=== PATIENT | male | born 1955 | race Caucasian/White ===

== ENCOUNTER 2016-11-25 09:22 | Inpatient (IN) | payer BC, OTHER ==
[2016-11-01 10:33] VITALS: BMI 32.0
--- NOTE | 2016-11-01 11:11 | PAT Medication Instructions ---
Service Date Nov 01, 2016. Current Home Medication List Acetaminophen (Tylenol Arthritis Ext Rel), 1,300 MG PO TID PRN for Pain Ascorbic Acid (Vitamin C), 1,000 MG PO QAM Aspirin Enteric Coated (Ecotrin Or Generic), 81 MG PO QAM Atorvastatin (Lipitor), 40 MG PO HS Cholecalciferol (Vitamin D3), 1 TAB PO QAM Clopidogrel (Plavix), 75 MG PO HS Coenzyme Q10 (Ubidecarenone) (Co Q10), 200 MG PO QAM Finasteride (Proscar), 5 MG PO QAM Irbesartan (Avapro), 150 MG PO QAM Loratadine (Claritin), 10 MG PO QAM Metoprolol Tartrate (Lopressor) (Lopressor), 150 MG PO QAM Nitroglycerin (Nitrostat), 0.4 MG UT PRN Pantoprazole (Protonix), 40 MG PO QAM Red Yeast Rice Extract (Red Yeast Rice), 1,200 MG PO AM/HS Tamsulosin Hcl (Flomax), 0.4 MG PO QPM Triamcinolone Acet (Triamcinolone Acetonide), 1 APPLN TOP QAM PRN for RN Turmeric (Curcuma Longa) (Turmeric Curcumin), 500 MG PO QAM Zinc (Zinc), 50 MG PO QAM Medication Instructions For Your Scheduled Surgery - Continue as directed: Nitroglycerin (Nitrostat), 0.4 MG UT PRN - Instructions to be given by prescribing physician and surgeon: Clopidogrel (Plavix), 75 MG PO HS - Hold the following medications 2 weeks prior to surgery: Turmeric (Curcuma Longa) (Turmeric Curcumin), 500 MG PO QAM Red Yeast Rice Extract (Red Yeast Rice), 1,200 MG PO AM/HS Coenzyme Q10 (Ubidecarenone) (Co Q10), 200 MG PO QAM - Hold the following medications 24 hours prior to surgery: Triamcinolone Acet (Triamcinolone Acetonide), 1 APPLN TOP QAM PRN for RN - Hold the following medications the morning of surgery: Zinc (Zinc), 50 MG PO QAM Ascorbic Acid (Vitamin C), 1,000 MG PO QAM Irbesartan (Avapro), 150 MG PO QAM Cholecalciferol (Vitamin D3), 1 TAB PO QAM Loratadine (Claritin), 10 MG PO QAM - Take the following medications the morning of surgery with a sip of water OTHERWISE NOTHING TO EAT OR DRINK AFTER MIDNIGHT: Acetaminophen (Tylenol Arthritis Ext Rel), 1,300 MG PO TID PRN for Pain (may take if needed up to 4 hours prior to surgery) Aspirin Enteric Coated (Ecotrin Or Generic), 81 MG PO QAM Finasteride (Proscar), 5 MG PO QAM Pantoprazole (Protonix), 40 MG PO QAM Metoprolol Tartrate (Lopressor) (Lopressor), 150 MG PO QAM - Take the following medications as scheduled the night before surgery: Acetaminophen (Tylenol Arthritis Ext Rel), 1,300 MG PO TID PRN for Pain Tamsulosin Hcl (Flomax), 0.4 MG PO QPM Atorvastatin (Lipitor), 40 MG PO HS If you have any questions please call us at [phone] (Tuyet Villanueva PA-C ) or [phone] or [phone]
--- NOTE | 2016-11-01 11:39 | DIAGNOSTIC IMAGING REPORT ---
CHEST PREADMISSION(PA/LAT) CLINICAL HISTORY: Preoperative evaluation. COMPARISON STUDY: Chest radiograph December 07, 2006. FINDINGS: Lung volumes are normal. Lungs are clear. There is no pneumothorax or pleural effusion. Cardiac size is normal. Mediastinal contours are normal. The appearance of the chest is unchanged. IMPRESSION: No acute cardiopulmonary findings. Electronically signed by: Collin Chang M.D. 11/01/2016 11:37 AM Dictated Date/Time: 11/01/2016 11:35 AM
[2016-11-01 12:11] LABS: BASO % 0.2 %; BASO ABS # 0.01 K/uL (0-0.2); COMPLETE YES; EOS % 2.1 %; HEMATOCRIT 39.2 % (42-52); IG% 0.5 %; LYMPH % 35.2 %; LYMPH ABS # 1.54 K/uL (1.2-3.4); MEAN CORPUSCULAR HEMOGLOBIN 32.4 pg (25-34); MEAN CORPUSCULAR HGB CONC 34.4 g/dl (32-36); MEAN PLATELET VOLUME 9.9 fL (7.4-10.4); MONO % 13.5 %; NEUT % 48.5 %; PLATELET COUNT 146 K/uL (130-400); RED BLOOD COUNT 4.17 M/uL (4.7-6.1); WHITE BLOOD COUNT 4.38 K/uL (4.8-10.8)
[2016-11-01 12:14] LABS: URINE APPEARANCE CLEAR (CLEAR); URINE BILIRUBIN NEG (NEG); URINE COLOR YELLOW; URINE NITRITE NEG (NEG); URINE PH 5.5 (4.5-7.5); URINE SPECIFIC GRAVITY 1.012 (1.000-1.030); UROBILINOGEN NEG (NEG)
[2016-11-01 12:33] LABS: MANUAL MICROSCOPIC REQUIRED? NO; REVIEW REQ? NO
[2016-11-01 12:34] LABS: BUN/CREATININE RATIO 16.6 (10-20); CALCIUM 9.1 mg/dl (8.5-10.1); CREATININE 0.98 mg/dl (0.60-1.40)
[~2016-11-25] VITALS: Ht 180.3 cm; Wt 105.2 kg
--- NOTE | 2016-11-25 07:37 | History & Physical Bridge Note ---
H&P Re-Evaluation Bridge Note: I have examined the patient, reviewed the History & Physical and in the interval since the performance of the History & Physical I have noted the following changes of clinical significance: No changes noted
--- NOTE | 2016-11-25 07:55 | History and Physical ---
History & Physical Date & Time of Service: Nov 25, 2016 at 07:46 Chief Complaint: Lumbar Spinal Stenosis Primary Care Physician: Ralph Hernández M.D. History of Present Illness Source: patient Patient has continued Lower back and left greater than right leg pain. He has failed conservative measures and reports for surgery. Past Medical/Surgical History Medical Problems: (1) Degenerative disc disease Status: Chronic (2) Myocardial infarction Status: Resolved Social History Smoking Status: Never Smoker Smokeless Tobacco Use: No Alcohol Use: none Drug Use: none Marital Status: Multi-Drug Resistant Organisms History of MDRO: No Allergies Coded Allergies: Adhesives (Verified Allergy, Unknown, RASH, 11/01/16) Cashew (Verified Allergy, Unknown, per cardio note , 11/21/16) Home Medications Scheduled Ascorbic Acid (Vitamin C), 1,000 MG PO QAM Aspirin Enteric Coated (Ecotrin Or Generic), 81 MG PO QAM Atorvastatin (Lipitor), 40 MG PO HS Cholecalciferol (Vitamin D3), 1 TAB PO QAM Clopidogrel (Plavix), 75 MG PO HS Coenzyme Q10 (Ubidecarenone) (Co Q10), 200 MG PO QAM Finasteride (Proscar), 5 MG PO QAM Irbesartan (Avapro), 150 MG PO QAM Loratadine (Claritin), 10 MG PO QAM Metoprolol Succinate (Toprol Xl), 150 MG PO DAILY Nitroglycerin (Nitrostat), 0.4 MG UT PRN Pantoprazole (Protonix), 40 MG PO QAM Red Yeast Rice Extract (Red Yeast Rice), 1,200 MG PO AM/HS Tamsulosin Hcl (Flomax), 0.4 MG PO QPM Turmeric (Curcuma Longa) (Turmeric Curcumin), 500 MG PO QAM Zinc (Zinc), 50 MG PO QAM Scheduled PRN Acetaminophen (Tylenol Arthritis Ext Rel), 1,300 MG PO TID PRN for Pain Triamcinolone Acet (Triamcinolone Acetonide), 1 APPLN TOP QAM PRN for RN Physical Exam General Appearance: WD/WN Head: normocephalic Eyes: normal inspection ENT: normal ENT inspection Neck: supple Respiratory/Chest: chest non-tender Cardiovascular: regular rate, rhythm Abdomen/GI: normal bowel sounds Back: normal inspection Extremities/Musculoskelatal: normal inspection 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 Impression Assessment and Plan Significant stenosis L4-S1. Patient reports for a lumbar decompression and fusion L4-S1. Risks and benefits discussed. Advanced Directives Existing Advance Directive: No Existing Living Will: No Existing Power of Mental Hygienist: No
[~2016-11-25 09:22] MED LIST: ACET1TAB84 PO; ASCA500 PO; ASPI81TA21 PO; ATOR-24 PO; CEFAZOLIN 2000 MG/60 ML D5W IV SCH; CHOL1000 PO; CLOP1TAB15 PO; CLR10 PO; COEN1CAP28 PO; FINA5TAB PO; IRBE-37 PO; LACTATED RINGER'S 1000ML 1,000 ML IV SCH; METO1TAB66 PO; NTRGSL/4 UT; PANT40TA PO; RED600TA PO; TAMS0.4C59 PO; TRMCR515 TOP; TURM1CAP PO; ZINC50TA3 PO
[2016-11-25 09:54] VITALS: BP 147/88; PULSE 75; TEMP 36.4; O2SAT 94; Ht 180.3 cm; Wt 105.2 kg
[2016-11-25] MEDS ORDERED: BACITRACIN 50000 UNIT VIAL ONE (13:47)
[2016-11-25] MEDS ORDERED: BUPIVACAINE/EPINEPHRINE 0.5% MPF 1:200,000 30 ML VIAL ONE (13:47)
[2016-11-25] MEDS ORDERED: SODIUM CHLORIDE 0.9% PF 50 ML VIAL ONE (13:47)
[2016-11-25] MEDS ORDERED: EpHEDrine SULFATE INJ 50 MG/ML AMP ONE (13:49)
[2016-11-25] MEDS ORDERED: LIDOCAINE HCL 2% 2 ML VIAL (20MG/ML) ONE (13:49)
[2016-11-25] MEDS ORDERED: NEOSTIGMINE METHYLSULFATE 1 MG/ML 10ML VIAL ONE (13:49)
[2016-11-25] MEDS ORDERED: FENTANYL CITRATE INJ 50 MCG/1 ML 2 ML VIAL ONE ×2 (13:49→14:21)
[2016-11-25] MEDS ORDERED: GLYCOPYRROLATE INJ 0.2 MG/ML VIAL ONE (13:49)
[2016-11-25] MEDS ORDERED: PROPOFOL IV EMULSION 10 MG/ML 20 ML VIAL IV ONE (13:49)
[2016-11-25] MEDS ORDERED: ONDANSETRON INJ 2 MG/ML 2 ML VIAL ONE ×2 (13:49→14:29)
[2016-11-25] MEDS ORDERED: ROCURONIUM BROMIDE 10 MG/ML 5 ML VIAL ONE ×2 (13:49→14:30)
[2016-11-25] MEDS ORDERED: MIDAZOLAM HCL 1 MG/ML 2ML VIAL ONE (13:49)
[2016-11-25] MEDS ORDERED: SUCCINYLCHOLINE CHLORIDE 20 MG/ML 10 ML VIAL IV ONE (13:49)
[2016-11-25] MEDS ORDERED: PHENYLEPHRINE HCL INJ 10 MG/ML VIAL ONE ×2 (13:49→16:15)
[2016-11-25] MEDS ORDERED: DEXAMETHASONE SOD INJ 4 MG/ML VIAL ONE ×2 (13:49→14:30)
[2016-11-25] MEDS ORDERED: VASOPRESSIN 20 UNIT/ML VIAL ONE (14:44)
[2016-11-25] MEDS ORDERED: ONDANSETRON INJ 2 MG/ML 2 ML VIAL IV PRN ×2 (14:45→16:30)
[2016-11-25] MEDS ORDERED: HYDROmorphone INJ 2 MG/ML SYR/VIAL IV PRN (14:45)
[2016-11-25] MEDS ORDERED: LABETALOL HCL IV 5 MG/ML 20ML IV PRN (14:45)
[2016-11-25] MEDS ORDERED: ATROPINE SULFATE 0.1 MG/ML 5ML SYR IV PRN (14:45)
[2016-11-25] MEDS ORDERED: HYDROmorphone INJ 2 MG/ML SYR/VIAL ONE (14:57)
[2016-11-25] MEDS ORDERED: SODIUM CHLORIDE 0.9% 1000ML 1,000 ML IV SCH (16:29)
--- NOTE | 2016-11-25 16:29 | [facility] Post Operative Brief Note ---
Immediate Operative Summary Operative Date Nov 25, 2016. Pre-Operative Diagnosis Significant stenosis L4-S1 Post-Operative Diagnosis Significant stenosis L4-S1 Procedure(s) Performed L4-L5, L5-S1 lumbar decompression fusion, with instrumentation, interbody fusion with application of interbody cage at levels L4-5, L5-S1, bone morphogenetic protein, use of tariq allograft Surgeon Dr. Chang Clinical Review Nurse Surgeon(s) ARIELA Coon Estimated Blood Loss 650ml Findings stenosis/spondy Specimens none per surgeon
[2016-11-25] MEDS ORDERED: LORAZEPAM INJ 0.5 MG in SYRINGE 0.75 ML IV PRN (16:30)
[2016-11-25] MEDS ORDERED: METOCLOPRAMIDE HCL INJ 5 MG/ML 2 ML VIAL IV PRN (16:30)
[2016-11-25] MEDS ORDERED: ACETAMINOPHEN IV 100 ML IV PRN (16:30)
[2016-11-25] MEDS ORDERED: FAMOTIDINE 20 MG TAB PO PRN (16:30)
[2016-11-25] MEDS ORDERED: ALUMINUM/MAGNESIUM SUSP 30 ML UDC PO PRN (16:30)
[2016-11-25] MEDS ORDERED: DO NOT ADMINISTER FLU VACCINE PRN ×3 (16:30)
[2016-11-25] MEDS ORDERED: NALOXONE HCL 0.4 MG/1 ML VIAL/CARP IV PRN ×2 (16:30)
[2016-11-25] MEDS ORDERED: DO NOT ADMINISTER PNEUMOCOCCAL VACCINE PRN ×2 (16:30)
[2016-11-25] MEDS ORDERED: LORAZEPAM 0.5 MG TAB PO PRN (16:30)
[2016-11-25] MEDS ORDERED: MAGNESIUM HYDROXIDE SUSP 30 ML UDC PO PRN (16:30)
[2016-11-25] MEDS ORDERED: BISACODYL 10 MG SUPP PR PRN (16:30)
[2016-11-25] MEDS ORDERED: PROMETHAZINE HCL INJ 12.5 MG in SODIUM CHLORIDE 0.9% 50ML 50 ML IV PRN (16:30)
[2016-11-25] MEDS ORDERED: hydrOXYzine HCL 25 MG TAB PO PRN (16:30)
[2016-11-25] MEDS ORDERED: SOD PHOSPHATE/SOD BIPHOSPHATE ENEMA 132 ML BTL PR PRN (16:30)
[2016-11-25] MEDS ORDERED: NITROGLYCERIN 0.4 MG SL PER TAB CHARGE UT PRN (16:30)
[2016-11-25] MEDS ORDERED: FLOSEAL HEMOSTATIC MATRIX 10ML TOP ONE (16:35)
[2016-11-25] MEDS ORDERED: HYDROmorphone HCL 0.5MG/ML 50 ML CASSETTE ONE (16:52)
--- NOTE | 2016-11-25 16:52 | DIAGNOSTIC IMAGING REPORT ---
INTRAOPERATIVE FLUOROSCOPIC IMAGES OF THE LUMBAR SPINE CLINICAL HISTORY: L4-S1 DECOMPRESSION/FUSION/INTERBODY COMPARISON STUDY: Lumbar spine MRI May 30, 2016 and lumbar spine radiograph June 12, 2016. Fluoroscopy time: 17 seconds. FINDINGS: 2 fluoroscopic images demonstrate L4-L5 and L5-S1 discectomies with interbody spacer placement. There is a posterior decompression. There are bilateral pedicle screws at the L4, L5 and S1 levels. IMPRESSION: Findings consistent with L4-L5 and L5-S1 discectomies and L4-S1 bilateral pedicle screw fusion. Electronically signed by: Collin Chang M.D. 11/25/2016 4:50 PM Dictated Date/Time: 11/25/2016 4:47 PM
--- NOTE | 2016-11-25 17:24 | Anesthesiology Progress Note ---
Anesthesia Post Op Note Date & Time Nov 25, 2016 at 17:24 Vital Signs Pain Intensity: 0 Vital Signs Past 12 Hours Date Time Temp Pulse Resp B/P Pulse Ox O2 Delivery O2 Flow Rate FiO2 11/25/16 17:08 60 15 11/25/16 17:08 60 15 155/94 100 11/25/16 17:03 73 13 11/25/16 17:03 74 13 153/100 100 11/25/16 16:58 62 15 11/25/16 16:58 62 15 151/96 99 11/25/16 16:53 68 12 11/25/16 16:53 36.3 68 16 149/86 99 Mask 10 11/25/16 16:53 67 12 129/76 99 11/25/16 09:54 36.4 75 18 147/88 94 Room Air Notes Mental Status: alert / awake / arousable, participated in evaluation Pt Amnestic to Procedure: Yes Nausea / Vomiting: adequately controlled Pain: adequately controlled Airway Patency, RR, SpO2: stable & adequate BP & HR: stable & adequate Hydration State: stable & adequate Anesthetic Complications: no major complications apparent Pt doing well.
[2016-11-25] MEDS: HYDROmorphone HCL 0.5MG/ML 50 ML CASSETTE IV PRN ×2 (17:59→19:01)
[2016-11-25 18:39] VITALS: BP 105/67; PULSE 59; TEMP 36.3; O2SAT 96
[2016-11-25 19:00] VITALS: BP 128/76; PULSE 52; TEMP 36.3; O2SAT 96
[2016-11-25] MEDS: LACTATED RINGER'S 1000ML 1,000 ML IV SCH ×2 (19:15→23:00)
[2016-11-25 19:59] VITALS: BP 114/73; PULSE 76; TEMP 36.2; O2SAT 94
[2016-11-25 21:09] VITALS: BP 113/72; PULSE 65; TEMP 36.3; O2SAT 96
[2016-11-25] MEDS: CEFAZOLIN IV 2,000 MG in DEXTROSE 5% 50ML 50 ML IV SCH (21:32)
[2016-11-25] MEDS: DEXAMETHASONE INJ 6 MG in SYRINGE 0 ML IV SCH (21:32)
[2016-11-25] MEDS: TAMSULOSIN HCL 0.4 MG CAP PO SCH (21:33)
[2016-11-25] MEDS: ATORVASTATIN 40 MG TAB PO SCH (21:33)
[2016-11-25] MEDS: DOCUSATE SODIUM/SENNA 50/8.6MG TAB PO SCH (21:33)
[2016-11-25 23:26] VITALS: BP 128/77; PULSE 65; TEMP 36.4; O2SAT 88; O2SAT 90
[2016-11-26] VITALS (8 sets, daily range): BP systolic 95–135; BP diastolic 58–75; PULSE 74–89; TEMP 36.4–36.8; O2SAT 91–97
--- NOTE | 2016-11-26 00:33 | OPERATIVE REPORT ---
DATE OF OPERATION: 11/25/2016 PREOPERATIVE DIAGNOSES: Spinal stenosis, spondylolisthesis. POSTOPERATIVE DIAGNOSES: Same. PROCEDURES PERFORMED: 1. Lumbar decompression, medial facetectomy, and foraminotomy L3-L4, L4-L5, L5-S1. 2. Posterior spinal fusion L4-L5 and L5-S1. 3. Placement posterior segmental instrumentation using Orthros rods and screws L4-L5 and L5-S1. 4. Interbody fusion L4-L5 and L5-S1. 5. Placement of PEEK cage 11 x 26 at L4-L5 and 7 x 26 at L5-S1. 6. Placement of locally harvested morcellized autograft in posterior gutters. 7. Placement of Infuse collagen sponge combined with Mastergraft in posterior gutters and Domitila bone graft in the interbody spaces. SURGEON: Erwin Chang DO PENSIONS RETIREMENT PLAN SPECIALIST: Juan Ricketts PA-C. Due to the complex nature of the procedure, the entire surgery was performed with the application assistant of Juan Ricketts PA-C. The assistant farm operations manager, under direct supervision, was involved in the actual performance of all aspects of the surgical procedure including hemostasis, tissue retraction and incision, instrument management, patient positioning, and wound closure. ANESTHESIA: General. DISPOSITION: The patient awakened and taken to PACU in stable condition. HISTORY OF PATIENT'S PROBLEMS: This is a 61-year-old male who presents with above-mentioned diagnoses. After failing an extensive course of nonoperative care, elected to undergo the above-mentioned procedure. Risks, benefits, pros, cons, and alternatives were outlined in detail preoperatively. DESCRIPTION OF PROCEDURE: The patient was met preoperatively and the case discussed and all questions were addressed. At that point, patient was taken back to operative suite and after undergoing successful general intubation by the department of anesthesia, was placed in prone position on Garth table atop Douglas frame. All bony prominences were well padded and the eyes were inspected to ensure there was no external pressure placed upon them. At this point, lumbar spine was prepped and draped in normal sterile fashion. Sharp dissection with the assistance of Bovie cautery performed down to and exposing the lamina and transverse processes of L4, L5 and sacral ala bilaterally. From a caudal to cephalad fashion, a complete laminectomy of L5, L4, partial laminectomy of L3 was performed addressing severe lateral recess and foraminal stenosis. After this was complete, pedicle screws were then placed in L4, L5 and S1 levels bilaterally with assistance of fluoroscopy and appropriate size travis provisionally placed. Through a transforaminal approach on the left, a complete discectomy of L5-S1 was performed, endplates curetted to subcortical bone and a 7 x 26 mm PEEK cage filled with Domitila bone grafting tapped into position. I then proceeded to L4-L5 and again through a transforaminal approach on the left, a complete discectomy was performed, endplates curetted to subcortical bone and an 11 x 26 mm PEEK cage filled with Domitila bone grafting tapped into position. The rods were then compressed, locked into final position bilaterally and transverse processes of L4, L5 and sacral ala burred to subcortical bone. Infuse collagen sponge combined with Mastergraft and locally harvested morselized autograft was placed in posterior gutters. A 7 flat JARAD drain was inserted. Incision was closed with 1-0 Vicryl in the fascia, 2-0 Vicryl subcutaneously, 4-0 Monocryl for final skin closure. Steri-Strips and sterile dressing placed. The patient was awakened and taken to PACU in stable condition. I attest to the content of the Intraoperative Record and any orders documented therein. Any exceptio ns are noted below.
[2016-11-26] MEDS: DEXAMETHASONE INJ 6 MG in SYRINGE 0 ML IV SCH ×2 (05:13→14:24)
[2016-11-26] MEDS: CEFAZOLIN IV 2,000 MG in DEXTROSE 5% 50ML 50 ML IV SCH (05:13)
[2016-11-26] MEDS: LACTATED RINGER'S 1000ML 1,000 ML IV SCH (05:15)
[2016-11-26] MEDS ORDERED: DC PCA SCH (06:00)
[2016-11-26] MEDS ORDERED: NURSING DECISION MEDICATION ORDER SCH (06:00)
[2016-11-26] MEDS ORDERED: HYDROmorphone INJ 1 MG/ML SYR IV PRN (06:01)
[2016-11-26 06:53] LABS: COMPLETE YES; HEMATOCRIT 32.9 % (42-52); IG% 0.4 %; LYMPH % 6.7 %; LYMPH ABS # 0.65 K/uL (1.2-3.4); MEAN CELL VOLUME 94.8 fL (80-100); MEAN CORPUSCULAR HGB CONC 33.7 g/dl (32-36); MEAN PLATELET VOLUME 9.9 fL (7.4-10.4); MONO % 6.8 %; NEUT % 86.1 %; PLATELET COUNT 157 K/uL (130-400); RED BLOOD COUNT 3.47 M/uL (4.7-6.1); WHITE BLOOD COUNT 9.72 K/uL (4.8-10.8)
[2016-11-26 07:18] LABS: BUN/CREATININE RATIO 13.4 (10-20); CALCIUM 8.2 mg/dl (8.5-10.1); POTASSIUM 4.6 mmol/L (3.5-5.1)
[2016-11-26] MEDS: LORATADINE 10 MG TAB PO SCH (09:02)
[2016-11-26] MEDS: ASPIRIN 81 MG ECTAB PO SCH (09:02)
[2016-11-26] MEDS: IRBESARTAN 150 MG TAB PO SCH (09:02)
[2016-11-26] MEDS: PANTOprazole SOD 40 MG TAB PO SCH (09:02)
[2016-11-26] MEDS: FINASTERIDE 5 MG TAB PO SCH (09:02)
[2016-11-26] MEDS: METOPROLOL SUCC 50MG EXT REL TAB PO SCH (09:03)
[2016-11-26] MEDS ORDERED: RXC5 PO (10:06)
--- NOTE | 2016-11-26 10:07 | Discharge Instructions ---
Discharge Instructions Admission Reason for Admission: Lumbar Spinal Stenosis Discharge Discharge Diagnosis / Problem: stenosis Discharge Goals Goal(s): Improve function Activity Recommendations Activity Limitations: per Instructions/Follow-up section . Instructions / Follow-Up Instructions / Follow-Up ACTIVITY RECOMMENDATIONS: SELF CARE INSTRUCTIONS AFTER THORACIC/LUMBAR FUSIONS 1. You may walk to your tolerance. It is good exercise for your legs and back. Expect some back and intermittent leg aches and pains. 2. You may perform "counter-top" level activities (make a sandwich, jovi with a project, etc.). 3. No bending or lifting of more than 10 pounds or back twisting of any nature (roll like a log when turning in bed). 4. You may ride in a car for 20-30 minutes at a time. No driving until after your first visit with your doctor. 5. Frequent changes of position and restricting sitting to 30 minutes at a time will help limit the amount of back spasms and stiffness you may experience. 6. You may discontinue the use of ambulatory aids (cane, crutches, etc.) once your strength and confidence allow. 7. You may field examiner the shower and let water strike your incision when you arrive home at least once daily. Do not take a tub bath, sit in a hot tub or go into a swimming pool until after your first recheck in the office. SPECIAL CARE INSTRUCTIONS: VERY IMPORTANT TO READ AND REVIEW A. Your surgical incision has been closed with a cosmetic suture under the skin that will dissolve in about 6 weeks. In 14 days, you can use a pair of clean scissors and cut the suture that is left outside of the skin at the ends of your incision. 1. The small skin tapes can be removed 7 days after surgery if they have not fallen off by that point. 2. You may keep the wound open to air as much as possible to promote healing after post-op day number 5 unless told otherwise by your doctor. 3. If you think the wound looks like it is becoming infected (redness or worsening drainage) and/or you are experiencing fever, chill or worsening back pain and muscle spasms, contact the office so that we may evaluate you as soon as possible. B. Complications are uncommon, but please contact us if you have any signs or symptoms of: 1. wound infection (fever higher than 102.5 degrees F, redness, separation of wound, drainage, or increasing pain from the incision) 2. blood clots in legs (pain, swelling, redness and warmth in legs) 3. urinary tract infection (fever higher than 102.5 degrees F, burning upon urination or increased frequency of urination) 4. nerve problems (inability to walk on your toes or heels, numbness, loss of bowel or bladder control) 5. any other symptoms that concern you C. Please call the office at if you have any concerns or questions about your operation or recovery. D. No smoking! Smoking drastically decreases the chance of a solid fusion. E. Do not take any anti-inflammatory medications (Indocin, Advil, Motrin, Aspirin, Naprosyn, etc.) as these may inhibit the chance of a solid fusion. Tylenol is okay to take for pain. MANAGING PAIN AFTER SPINAL SURGERY 1. Narcotic medication is intended for short-term use and will be provided for surgical pain. Surgical pain usually lasts for a period of 4-6 weeks. Narcotic medication includes Percocet, Vicodin, Darvocet, Tylenol #3 or Lortab. 2. Longer-term pain is more appropriately treated with non-narcotic medication such as Tylenol ES. 3. Muscle spasm is not appropriately treated with narcotics. Muscle relaxers such as Soma, Flexeril or Skelaxin can be used along with Tylenol ES. 4. Remember that we all live with some "aches and pains". This is not unusual or uncommon after an injury or as we get older. a. Back pain is expected and may include muscle spasms for 4 to 6 weeks after surgery. The pain should gradually improve. If the pain worsens for no apparent reason, please contact the office. b. Intermittent leg pain may also be experienced and should not be concerned about unless it worsens for no apparent reason. If so, please contact the office. 5. We will provide appropriate medication within the normal guidelines of their prescribed use. We will also be very cautious and aware of potential abuse and extended duration of patients' medication needs. a. Pain medications are for your comfort and to assist with sleep and rest so that the tissue can heal. They are not provided in order to return to normal activity and should not be used through the day. To do so or worsening pain at night can result from ongoing tissue damage and development of tolerance to the prescribed medicine. 6. Please allow 2-3 days to process refills. Prescriptions will not be mailed but must be picked up at the office. FOLLOW UP VISIT: Keep your scheduled follow-up appointment. Any questions, please call the office at . Current Hospital Diet Patient's current hospital diet: Regular Diet Discharge Diet Recommended Diet: Regular Diet Procedures Procedures Performed: L4-L5, L5-S1 lumbar decompression fusion, with instrumentation, interbody fusion with application of interbody cage at levels L4-5, L5-S1, bone morphogenetic protein, use of tariq allograft Pending Studies Studies pending at discharge: no Laboratory Results Lipid Panel Test 10/03/16 14:13 Range/Units Triglycerides Level 99 0-150 mg/dl Cholesterol Level 109 0-200 mg/dl HDL Cholesterol 42 mg/dl Cholesterol/HDL Ratio 2.6 LDL Cholesterol, Calculated 47 mg/dl Medical Emergencies . Who to Call and When: Medical Emergencies: If at any time you feel your situation is an emergency, please call 911 immediately. . Non-Emergent Contact Non-Emergency issues call your: Primary Care Provider . "Provider Documentation" section prepared by Erwin Chang. VTE Core Measure Inpt VTE Proph given/why not?: Leo Hendricks, SCD's
--- NOTE | 2016-11-26 10:45 | PROGRESS NOTE ---
DATE: 11/26/2016 Postop day 1. Back pain controlled. Leg pain markedly improved. Vital signs stable. T-max 36.4. JARAD drain 140 mL. Hematocrit this a.m. is 32.9. On exam, patient is in chair at bedside. Demonstrates good strength to testing. Appears comfortable. ASSESSMENT: Status post multilevel lumbar decompression and fusion. PLAN: At this time, we will continue physical therapy today, advance the bowel regimen. Anticipate possible home Monday or Monday.
[2016-11-26] MEDS: ATORVASTATIN 40 MG TAB PO SCH (21:23)
[2016-11-26] MEDS: TAMSULOSIN HCL 0.4 MG CAP PO SCH (21:23)
[2016-11-26] MEDS: DOCUSATE SODIUM/SENNA 50/8.6MG TAB PO SCH (21:23)
[2016-11-26] MEDS: ACETAMINOPHEN 500 MG TAB PO PRN (21:24)
[2016-11-27] MEDS: POLYETHYLENE (MIRALAX) 17 GM PACK PO SCH ×4 (06:34→23:31)
[2016-11-27 06:54] VITALS: BP 122/75; PULSE 85; TEMP 36.1; O2SAT 93
[2016-11-27] MEDS: ACETAMINOPHEN 500 MG TAB PO PRN ×2 (08:01→18:08)
[2016-11-27] MEDS: IRBESARTAN 150 MG TAB PO SCH (08:02)
[2016-11-27] MEDS: LORATADINE 10 MG TAB PO SCH (08:02)
[2016-11-27] MEDS: ASPIRIN 81 MG ECTAB PO SCH (08:02)
[2016-11-27] MEDS: PANTOprazole SOD 40 MG TAB PO SCH (08:03)
[2016-11-27] MEDS: FINASTERIDE 5 MG TAB PO SCH (08:03)
[2016-11-27] MEDS: METOPROLOL SUCC 50MG EXT REL TAB PO SCH (08:04)
--- NOTE | 2016-11-27 08:56 | PROGRESS NOTE ---
DATE: 11/27/2016 HISTORY OF PRESENT ILLNESS: Mr. Finnegan is postop day 2 lumbar decompression and fusion. He has no radicular leg pain. Back pain is controlled. He is passing flatus but no bowel movement. His JARAD drain output last shift was 65 mL. Yesterday in physical therapy ambulating roughly 300 feet. He overall is doing quite well. PHYSICAL EXAMINATION: VITAL SIGNS: Stable. GENERAL: He is sitting in a chair eating breakfast. No obvious distress. LOWER EXTREMITIES: Calves are soft and nontender. Neurovascularly intact. BACK AND SPINE: Lumbar dressing clean, dry and intact. ASSESSMENT: Postop day 2 lumbar decompression and fusion. PLAN: He is doing fantastic. We will maintain JARAD drain and dressing. Continue with bowel regimen. DVT prophylaxis for TEDs and SCDs. Continue physical therapy today. Discharge home tomorrow.
[2016-11-27 09:04] VITALS: BP 143/84; PULSE 81; O2SAT 95
[2016-11-27] MEDS: OXYCODONE HCL IR 5 MG TAB (IMMEDIATE RELEASE) PO PRN (12:23)
[2016-11-27 15:31] VITALS: BP 103/66; PULSE 71; TEMP 36.4; O2SAT 98
[2016-11-27] MEDS: DOCUSATE SODIUM/SENNA 50/8.6MG TAB PO SCH (20:35)
[2016-11-27] MEDS: TAMSULOSIN HCL 0.4 MG CAP PO SCH (20:35)
[2016-11-27] MEDS: ATORVASTATIN 40 MG TAB PO SCH (20:35)
[2016-11-27 23:20] VITALS: BP 151/79; PULSE 79; TEMP 36.4; O2SAT 95
[2016-11-28] MEDS: POLYETHYLENE (MIRALAX) 17 GM PACK PO SCH ×2 (05:21→12:00)
--- NOTE | 2016-11-28 07:55 | Anesthesiology Progress Note ---
Anesthesia Post Op Note Date & Time Nov 28, 2016 at 07:54 Vital Signs Pain Intensity: 4.0 Vital Signs Past 12 Hours Date Time Temp Pulse Resp B/P Pulse Ox O2 Delivery O2 Flow Rate FiO2 11/28/16 07:43 Room Air 11/27/16 23:20 36.4 79 18 151/79 95 Room Air Notes Mental Status: alert / awake / arousable, participated in evaluation Pt Amnestic to Procedure: Yes Nausea / Vomiting: adequately controlled Pain: adequately controlled Airway Patency, RR, SpO2: stable & adequate BP & HR: stable & adequate Hydration State: stable & adequate Anesthetic Complications: no major complications apparent
[2016-11-28 07:58] VITALS: BP 115/68; PULSE 86; TEMP 36.5; O2SAT 94
[2016-11-28] MEDS: PANTOprazole SOD 40 MG TAB PO SCH (08:28)
[2016-11-28] MEDS: FINASTERIDE 5 MG TAB PO SCH (08:28)
[2016-11-28] MEDS: IRBESARTAN 150 MG TAB PO SCH (08:28)
[2016-11-28] MEDS: LORATADINE 10 MG TAB PO SCH (08:28)
[2016-11-28] MEDS: ASPIRIN 81 MG ECTAB PO SCH (08:28)
[2016-11-28] MEDS: METOPROLOL SUCC 50MG EXT REL TAB PO SCH (08:29)
[2016-11-28] MEDS: OXYCODONE HCL IR 5 MG TAB (IMMEDIATE RELEASE) PO PRN (08:29)
[2016-11-28 09:20] VITALS: O2SAT 94
[2016-11-28 09:38] VITALS: BP 115/68; PULSE 86; TEMP 36.5; O2SAT 94
--- NOTE | 2016-11-29 01:21 | DISCHARGE SUMMARY ---
PRINCIPAL DIAGNOSIS: Spinal stenosis. HOSPITAL COURSE FOLLOWS: On 11/25/2016, the patient underwent lumbar decompression and fusion, tolerated this well, and taken to the orthopedic floor postoperatively. Postop day #1, he was up and ambulatory, leg pain improved, and progressed to postop day #2. Subsequently, on postop day #3, JARAD drain decreased appropriately, pain well controlled, and subsequently discharged to home. Discharge orders and instructions found on the chart for review.
== END 2016-11-28 13:21 | disposition home or self-care (01) | DRG 460 ==
LOC: ENRESERVTM → ENRESERVDT → C.ACU 09:22 → C.3E 12:00
PROVIDERS: ADMIT Orthopaedic Surgery Orthopaedic Surgery of the Spine; ATTEND Orthopaedic Surgery Orthopaedic Surgery of the Spine
PROC: 0SG30AJ Fusion of Lumbosacral Joint with Interbody Fusion Device, Posterior Approach, Anterior Column, Open Approach (ICD-10-PCS; principal; 2016-11-25 14:30)
PROC: 0SG3071 Fusion of Lumbosacral Joint with Autologous Tissue Substitute, Posterior Approach, Posterior Column, Open Approach (ICD-10-PCS; principal; 2016-11-25 14:30)
PROC: 0ST40ZZ Resection of Lumbosacral Disc, Open Approach (ICD-10-PCS; principal; 2016-11-25 14:30)
PROC: 01NB0ZZ Release Lumbar Nerve, Open Approach (ICD-10-PCS; principal; 2016-11-25 14:30)
PROC: 3E0U0GB Introduction of Recombinant Bone Morphogenetic Protein into Joints, Open Approach (ICD-10-PCS; principal; 2016-11-25 14:30)
PROC: 0SG00AJ Fusion of Lumbar Vertebral Joint with Interbody Fusion Device, Posterior Approach, Anterior Column, Open Approach (ICD-10-PCS; principal; 2016-11-25 14:30)
PROC: 0ST20ZZ Resection of Lumbar Vertebral Disc, Open Approach (ICD-10-PCS; principal; 2016-11-25 14:30)
PROC: 0SG0071 Fusion of Lumbar Vertebral Joint with Autologous Tissue Substitute, Posterior Approach, Posterior Column, Open Approach (ICD-10-PCS; principal; 2016-11-25 14:30)
DX: M48.06 Spinal stenosis, lumbar region (principal); M48.07 Spinal stenosis, lumbosacral region; I10 Essential (primary) hypertension; E78.5 Hyperlipidemia, unspecified; K21.9 Gastro-esophageal reflux disease without esophagitis; M19.90 Unspecified osteoarthritis, unspecified site; N40.0 Benign prostatic hyperplasia without lower urinary tract symptoms; I65.29 Occlusion and stenosis of unspecified carotid artery; I25.10 Atherosclerotic heart disease of native coronary artery without angina pectoris; I25.2 Old myocardial infarction; E66.9 Obesity, unspecified; Z68.32 Body mass index [BMI] 32.0-32.9, adult; Z95.5 Presence of coronary angioplasty implant and graft; Z79.02 Long term (current) use of antithrombotics/antiplatelets; Z79.82 Long term (current) use of aspirin; Z79.899 Other long term (current) drug therapy

== ENCOUNTER → 2016-12-23 | Outpatient (CLI) | payer BC ==
[~2016-12-23] MED LIST changes: -CEFAZOLIN 2000 MG/60 ML D5W IV SCH; -LACTATED RINGER'S 1000ML 1,000 ML IV SCH; +RXC5 PO
[2016-12-23 12:16] LABS: BASO % 0.2 %; BASO ABS # 0.01 K/uL (0-0.2); COMPLETE YES; EOS % 1.9 %; HEMATOCRIT 36.5 % (42-52); IG% 0.2 %; LYMPH % 27.4 %; LYMPH ABS # 1.17 K/uL (1.2-3.4); MEAN CELL VOLUME 93.6 fL (80-100); MEAN CORPUSCULAR HGB CONC 33.2 g/dl (32-36); MEAN PLATELET VOLUME 9.6 fL (7.4-10.4); MONO % 15.5 %; NEUT % 54.8 %; PLATELET COUNT 240 K/uL (130-400); WHITE BLOOD COUNT 4.27 K/uL (4.8-10.8)
[2016-12-23 12:29] LABS: CHOLESTEROL/HDL RATIO 2.9
[2016-12-23 12:54] LABS: ESTIMATED AVERAGE GLUCOSE 117 mg/dl; HA1C FLAG Normal (Normal)
== END | disposition home or self-care (01) ==
LOC: C.LABBFT 10:46
PROVIDERS: ATTEND Internal Medicine
DX: D64.9 Anemia, unspecified (principal); R73.01 Impaired fasting glucose; E78.00 Pure hypercholesterolemia, unspecified

== ENCOUNTER → 2017-01-09 | Outpatient (CLI) | payer BC | END | disposition home or self-care (01) | LOC: C.LABBFT 11:08 | PROVIDERS: ATTEND Physician Assistant Medical | DX: Z11.59 Encounter for screening for other viral diseases (principal) ==

== ENCOUNTER → 2017-01-30 | Outpatient (CLI) | payer BC ==
[~2017-01-30] MED LIST changes: +METO-452 PO; -METO1TAB66 PO
[2017-01-30 12:27] LABS: BASO % 0.2 %; BASO ABS # 0.01 K/uL (0-0.2); COMPLETE YES; EOS % 1.2 %; HEMATOCRIT 41.6 % (42-52); IG% 0.2 %; LYMPH % 31.9 %; LYMPH ABS # 1.61 K/uL (1.2-3.4); MEAN CELL VOLUME 93.9 fL (80-100); MEAN PLATELET VOLUME 10.1 fL (7.4-10.4); MONO % 10.5 %; PLATELET COUNT 181 K/uL (130-400); RED BLOOD COUNT 4.43 M/uL (4.7-6.1); WHITE BLOOD COUNT 5.05 K/uL (4.8-10.8)
[2017-01-30 12:41] LABS: FERRITIN 81.2 ng/ml (8.0-388.0)
== END | disposition home or self-care (01) ==
LOC: C.LABBFT 08:47
PROVIDERS: ATTEND Physician Assistant Medical
DX: D64.9 Anemia, unspecified (principal)

== ENCOUNTER → 2017-07-03 | Outpatient (CLI) | payer BC ==
[~2017-07-03] MED LIST changes: -METO-452 PO; +METO1TAB66 PO
[2017-07-03 12:41] LABS: ESTIMATED AVERAGE GLUCOSE 123 mg/dl; HA1C FLAG Normal (Normal)
== END | disposition home or self-care (01) ==
LOC: C.LABBFT 08:01
PROVIDERS: ATTEND Internal Medicine
DX: E78.00 Pure hypercholesterolemia, unspecified (principal); R73.01 Impaired fasting glucose

== ENCOUNTER → 2017-07-12 | Outpatient (CLI) | payer BC ==
[2017-07-12 17:39] LABS: RHEUMATOID FACTOR < 10.0 U/mL (0-15); URIC ACID 5.6 mg/dl (2.6-7.2)
[2017-07-12 19:40] LABS: LYME DISEASE AB IGG NEG (NEG)
[2017-07-12 19:47] LABS: LYME DISEASE AB IGM EQUIVOCAL (NEG)
[2017-07-19 04:37] LABS: 18KDIGG BAND NONREACTIVE (NONREACTIVE); 23KDIGG BAND NONREACTIVE (NONREACTIVE); 23KDIGM BAND NONREACTIVE (NONREACTIVE); 28KDIGG BAND NONREACTIVE (NONREACTIVE); 30KDIGG BAND NONREACTIVE (NONREACTIVE); 39KDIGG BAND NONREACTIVE (NONREACTIVE); 39KDIGM BAND NONREACTIVE (NONREACTIVE); 41KDIGG BAND NONREACTIVE (NONREACTIVE); 41KDIGM BAND NONREACTIVE (NONREACTIVE); 45KDIGG BAND NONREACTIVE (NONREACTIVE); 58KDIGG BAND NONREACTIVE (NONREACTIVE); 66KDIGG BAND NONREACTIVE (NONREACTIVE); 93KDIGG BAND NONREACTIVE (NONREACTIVE)
== END | disposition home or self-care (01) ==
LOC: C.LABBFT 13:29
PROVIDERS: ATTEND Internal Medicine
DX: E78.00 Pure hypercholesterolemia, unspecified (principal); R73.01 Impaired fasting glucose; M25.50 Pain in unspecified joint

== ENCOUNTER → 2017-08-07 | Outpatient (CLI) | payer BC ==
--- NOTE | 2017-08-07 11:48 | DIAGNOSTIC IMAGING REPORT ---
R KNEE 1 OR 2 VIEWS ROUTINE, L KNEE 1 OR 2 VIEWS ROUTINE HISTORY: 62 years-old Male R76.8 M25.569 M25.449 chronic bilateral knee pain with history of arthritis. COMPARISON: None available TECHNIQUE: 2 views of the bilateral knees for a total of 4 images FINDINGS: RIGHT: Tricompartmental osteoarthritis is noted, mild in the lateral compartment, mild to moderate medial compartment and moderate within the patellofemoral compartment. Enthesophyte of the superior patella at the quadriceps insertion site. Moderate joint effusion. Peripheral vascular calcifications. No acute fracture or dislocation. LEFT: Tricompartmental osteoarthritis is noted, mild within the lateral compartment, mild to moderate in the medial and patellofemoral compartments. Small joint effusion. Enthesophyte of the superior patella at the quadriceps insertion site. Vascular calcifications. No acute fracture or dislocation. IMPRESSION: 1. No acute fracture or dislocation. 2. Tricompartmental osteoarthritis of the bilateral knees, most pronounced within the medial and patellofemoral compartments as above. Moderate right and small left joint effusions. 3. Peripheral vascular disease. The above report was generated using voice recognition software. It may contain grammatical, syntax or spelling errors. Electronically signed by: Hiram Luo M.D. 08/07/2017 11:46 AM Dictated Date/Time: 08/07/2017 11:44 AM
--- NOTE | 2017-08-07 11:50 | DIAGNOSTIC IMAGING REPORT ---
L HAND MIN 3 VIEWS ROUTINE, R HAND MIN 3 VIEWS ROUTINE CLINICAL HISTORY: Bilateral hand pain. Arthritis. COMPARISON STUDY: None. FINDINGS: No fracture or dislocation. Bone mineralization is intact. Mild cartilage space narrowing within the MCP joints. Moderate cartilage space narrowing throughout the PIP joints and severe cartilage space narrowing with [id number] articulation throughout the DIP joints and interphalangeal joint of the thumbs. There are large osteophytes at the majority of the DIP joints and smaller osteophytes at the PIP joints. The bilateral index and middle finger DIP joints demonstrate a mild superimposed erosive arthritis. Prior amputation of the distal tuft of the left ring finger. IMPRESSION: 1. Moderate to advanced osteoarthritis within the hands most pronounced at the DIP joints. 2. There is also suggestion of a superimposed erosive arthritis component at the index and middle finger DIP joints. Electronically signed by: Camden Baldwin M.D. 08/07/2017 11:48 AM Dictated Date/Time: 08/07/2017 11:45 AM
--- NOTE | 2017-08-07 11:50 | DIAGNOSTIC IMAGING REPORT ---
L HAND MIN 3 VIEWS ROUTINE, R HAND MIN 3 VIEWS ROUTINE CLINICAL HISTORY: Bilateral hand pain. Arthritis. COMPARISON STUDY: None. FINDINGS: No fracture or dislocation. Bone mineralization is intact. Mild cartilage space narrowing within the MCP joints. Moderate cartilage space narrowing throughout the PIP joints and severe cartilage space narrowing with [id number] articulation throughout the DIP joints and interphalangeal joint of the thumbs. There are large osteophytes at the majority of the DIP joints and smaller osteophytes at the PIP joints. The bilateral index and middle finger DIP joints demonstrate a mild superimposed erosive arthritis. Prior amputation of the distal tuft of the left ring finger. IMPRESSION: 1. Moderate to advanced osteoarthritis within the hands most pronounced at the DIP joints. 2. There is also suggestion of a superimposed erosive arthritis component at the index and middle finger DIP joints. Electronically signed by: Camden Baldwin M.D. 08/07/2017 11:48 AM Dictated Date/Time: 08/07/2017 11:45 AM
== END | disposition home or self-care (01) ==
LOC: C.RAD1850 10:45
PROVIDERS: ATTEND Internal Medicine Rheumatology
DX: M25.449 Effusion, unspecified hand (principal); M25.569 Pain in unspecified knee; R76.8 Other specified abnormal immunological findings in serum; M19.041 Primary osteoarthritis, right hand; M19.042 Primary osteoarthritis, left hand; I73.9 Peripheral vascular disease, unspecified; M17.0 Bilateral primary osteoarthritis of knee

== ENCOUNTER → 2017-09-26 | Outpatient (CLI) | payer OTHER ==
[~2017-09-26] MED LIST changes: +METO-452 PO; -METO1TAB66 PO
== END | disposition home or self-care (01) ==
LOC: C.LABBFT 07:49
PROVIDERS: ATTEND Urology
DX: N40.0 Benign prostatic hyperplasia without lower urinary tract symptoms (principal); Z12.5 Encounter for screening for malignant neoplasm of prostate

== ENCOUNTER → 2017-10-17 | Outpatient (CLI) | payer OTHER ==
[~2017-10-17] VITALS: Ht 180.3 cm; Wt 106.0 kg
[~2017-10-17] MED LIST changes: +ASPI-319 PO; -ASPI81TA21 PO
[2017-10-17 13:40] VITALS: BP 124/84; PULSE 69; Ht 180.3 cm; Wt 106.0 kg
== END | disposition home or self-care (01) ==
LOC: C.NEUR 13:09
PROVIDERS: ATTEND Internal Medicine Pulmonary Disease
DX: R53.83 Other fatigue (principal); R06.83 Snoring; R06.81 Apnea, not elsewhere classified; G47.30 Sleep apnea, unspecified

== ENCOUNTER → 2017-11-14 | Outpatient (CLI) | payer OTHER ==
[~2017-11-14] MED LIST changes: -ASPI-319 PO; +ASPI81TA21 PO
--- NOTE | 2017-11-17 11:50 | POLYSOMNOGRAPH REPORT ---
CLINICAL DATA: A 62-year-old male with BMI of 33.4 referred with a history of snoring, fatigue and excessive daytime sleepiness with witnessed apneic episodes. His [place] sleepiness score is 10/24. On the evening of 11/15/2017, a home sleep apnea test was performed using a [employer] type 3 monitor. RECORDING RESULTS: Total recording time was 10 hours. The patient monitoring time and estimated sleep time was 6.9 hours. RESPIRATORY DATA: Mild sleep apnea was documented. The AMARILIS was 9.5. There were 3 obstructive, 1 mixed, and 3 central apneic episodes. There were 58 hypopneic episodes. The longest respiratory event was 31 seconds. OXIMETRY DATA: Nocturnal hypoxemia was seen. Oxygen cnadido was 77%. Mean saturation was 90%. Time below 89% was 77 minutes. HEART RATE DATA: Heart rates ranged from 60-77 beats per minute. SNORING DATA: Snoring was recorded without the night. IMPRESSION: Mild sleep apnea/hypopnea with nocturnal hypoxemia with a respiratory event index of 9.5 and oxygen candido of 77%. RECOMMENDATIONS: The patient may benefit from a repeat sleep study with CPAP, use of auto CPAP, or use of an oral appliance. Clinical correlation is needed. ROBERT
== END | disposition home or self-care (01) ==
LOC: C.NEUR 11-09 10:18
PROVIDERS: ATTEND Internal Medicine Pulmonary Disease
DX: G47.33 Obstructive sleep apnea (adult) (pediatric) (principal); G47.36 Sleep related hypoventilation in conditions classified elsewhere

== ENCOUNTER → 2018-01-12 | Outpatient (CLI) | payer OTHER ==
[2018-01-12 12:20] LABS: BASO % 0.4 %; BASO ABS # 0.02 K/uL (0-0.2); EOS % 2.2 %; EOS ABS # 0.12 K/uL (0-0.5); HEMATOCRIT 40.5 % (42-52); IG# 0.01 K/uL (0.00-0.02); LYMPH % 26.9 %; MEAN CELL VOLUME 93.5 fL (80-100); MEAN CORPUSCULAR HEMOGLOBIN 32.3 pg (25-34); MEAN CORPUSCULAR HGB CONC 34.6 g/dl (32-36); MEAN PLATELET VOLUME 9.6 fL (7.4-10.4); MONO % 15.1 %; MONO ABS # 0.84 K/uL (0.11-0.59); NEUT % 55.2 %; NEUT ABS # 3.09 K/uL (1.4-6.5); PLATELET COUNT 188 K/uL (130-400); RED CELL DISTRIBUTION WIDTH CV 12.9 % (11.5-14.5); RED CELL DISTRIBUTION WIDTH SD 44.2 fL (36.4-46.3); WHITE BLOOD COUNT 5.58 K/uL (4.8-10.8)
[2018-01-12 12:38] LABS: HEMOGLOBIN A1C 6.1 % (4.5-5.6)
[2018-01-12 12:46] LABS: ALBUMIN 3.8 gm/dl (3.4-5.0); ALT/SGPT 33 U/L (12-78); BLOOD UREA NITROGEN 18 mg/dl (7-18); CARBON DIOXIDE 26 mmol/L (21-32); CREATININE 0.98 mg/dl (0.60-1.40); GLUCOSE 106 mg/dl (70-99); POTASSIUM 4.1 mmol/L (3.5-5.1); SODIUM 137 mmol/L (136-145)
[2018-01-12 12:49] LABS: ALKALINE PHOSPHATASE 63 U/L (45-117); AST/SGOT 21 U/L (15-37); TOTAL PROTEIN 7.6 gm/dl (6.4-8.2)
== END | disposition home or self-care (01) ==
LOC: C.LABBFT 08:46
PROVIDERS: ATTEND Internal Medicine
DX: R73.01 Impaired fasting glucose (principal)

== ENCOUNTER 2018-11-22 05:55 | Inpatient (IN) ==
--- NOTE | 2018-11-08 09:17 | Anesthesiology Consultation ---
Date of Service November 08, 2018 Assessment & Plan (1) Encounter for pre-operative examination: Plan: Need medical and cardio clearances Chart Review Chart Review: Acceptable Risk for Surgery and Patient seen in Pre Admission Testing Consults Requested medical & cardiac (Dr. Hernández (11/14) & Dr. Robert) Saw cardio on 11/14/17, and note states "patient is at an acceptable risk to proceed with upcoming surgery without any additional cardiovascular testing or intervention. Recommend he remain on low dose aspirin and beta kayla therapy throughout the perioperative period. He was instructed to hold Plavix for 7 days prior to surgery and resume once safe from a surgical standpoint." Patient also saw PCP on 11/14/18, and note states "He is an acceptable risk for scheduled left GEORGE on 11/22/18 and is medically cleared for the surgery as long as he receives cardiac clearance as well." Teaching & Discussion Pre-Anesthesia Teaching/Discussion Notes: Instructed NPO after midnight before surgery, except medications with 15 cc of water. Medication instructions provided according to the PAT guidelines. History Surgery Operation Date: 11/22/18 10:55 Proposed Procedures p Left Hip Arthroplasty - Alvaro Mitchell MD Height/Weight Height: 5 ft 11 in Weight: 98.4 kg Allergies Allergy/AdvReac Type Severity Reaction Status Date / Time adhesive Allergy Unknown RASH Verified 11/25/16 09:44 cashew nut Allergy Unknown GI ISSUES Verified 11/05/18 13:27 Medications Home Medications Medication Instructions Recorded Confirmed Last Taken acetaminophen [Tylenol Arthritis 650 mg PO Q12H PRN 11/05/18 11/05/18 Unknown Pain] ascorbic acid (vitamin C) [Vitamin 1 g PO QAM 11/05/18 11/05/18 Unknown C] aspirin [Aspir-81] 81 mg PO QAM 11/05/18 11/05/18 Unknown atorvastatin 80 mg PO 11/05/18 11/08/18 Unknown cholecalciferol (vitamin D3) 1,000 unit PO QAM 11/05/18 11/05/18 Unknown [Vitamin D3] clopidogrel 75 mg PO 11/05/18 11/05/18 Unknown coenzyme Q10 200 mg PO QAM 11/05/18 11/05/18 Unknown irbesartan 150 mg PO QAM 11/05/18 11/05/18 Unknown loratadine [Claritin] 10 mg PO QA 11/05/18 11/05/18 Unknown metformin 500 mg PO QAM 11/05/18 11/05/18 Unknown metoprolol succinate 150 mg PO QAM 11/05/18 11/05/18 Unknown multivitamin 1 tab PO QAM 11/05/18 11/05/18 Unknown nitroglycerin [Nitrostat] 1 tab SUBLINGUAL UD PRN 11/05/18 11/05/18 Unknown pantoprazole [Protonix] 40 mg PO QAM 11/05/18 11/05/18 Unknown red yeast rice 600 mg PO QAM 11/05/18 11/05/18 Unknown tamsulosin 0.4 mg PO HS 11/05/18 11/05/18 Unknown triamcinolone acetonide 1 applic TOPICAL UD PRN 11/05/18 11/05/18 Unknown turmeric 1 cap PO QAM 11/05/18 11/05/18 Unknown zinc 50 mg PO QAM 11/05/18 11/05/18 Unknown cholecalciferol (vitamin D3) 1,000 unit PO QAM 11/08/18 11/08/18 Unknown [Vitamin D3] diclofenac sodium 2 g TOPICAL BID 11/08/18 11/08/18 Unknown dutasteride 0.5 mg PO QAM 11/08/18 11/08/18 Unknown glucosamine HCl 1,500 mg PO QAM 11/08/18 11/08/18 Unknown loratadine 10 mg PO QAM 11/08/18 11/08/18 Unknown niacin 500 mg PO QAM 11/08/18 11/08/18 Unknown ranitidine HCl 150 mg PO BID 11/08/18 11/08/18 Unknown Past Medical History Medical History Asymptomatic PVCs BPH (benign prostatic hyperplasia) CAD (coronary artery disease) GERD (gastroesophageal reflux disease) H/O vertigo History of basal cell carcinoma of skin Hyperlipidemia Myocardial Infarction 12 YEARS AGO, STENT X1. Osteoarthritis Prediabetes Sleep apnea CPAP HS Transient ischemic attack (TIA) WERE FOUND ON MRI 3 YEARS AGO. NO KNOWLEDGE OF ANY SPECIFIC EVENT. NO RESIDUAL EFFECT. Past Surgical History Surgical History Fusion of spine LUMBAR FUSION (L4, L5, S1) History of cardiac cath Past Anesthesia History No Hx of Anesthesia Complications and No Family Hx of Anesthesia Complications History of PONV No Motion Sickness Screening History of Motion Sickness: No Social History Smoking Status: Never smoker Do You Dip or Chew Tobacco: No Hx Alcohol Use: No Hx Substance Use: No substance use type: does not use Exercise / Class Metabolic Activity II 4-5 Yardwork/Stairs/Walk up hill (Walks daily with work. Able to climb FOS. Denies CP. Rare SOB with extreme activity. ) Review of Systems Patient denies chest pain, shortness of breath, dyspnea on exertion, joint pain , reflux (controlled by medication), cough, wheezing, palpitations. +joint pain (hip, knees, hands) +palpitations (when he gets irregular heart rate - PVCs?) Physical Exam Vital Signs BP: 111/71 P: 60 R: 14 T: 97.5 SPO2: 96% on RA ENMT Thyromental Distance: < 3.5 Finger Breadths (2.5) Mallampati Class: II Neck normal visual inspection, trachea midline and + facial hair (Advised); neck extension not limited Respiratory normal respiratory effort Auscultation: lungs clear to auscultation bilaterally Cardiovascular Rate/Rhythm: regular rate and regular rhythm Neurologic moves all extremities Psychiatric Orientation: alert and oriented x 3 Testing Electrocardiogram Date: 11/08/18 Findings: + SB @ (57) When compared with ECG of 12/07/06, ST no longer elevated in Anterior leads. Chest X-Ray Date: 11/08/18 Findings: + NAD Stress Test Date: 05/26/16 Type: exercise Findings: + WNL Resting EF: 60% Resting LV Function: normal Resting RWMA: + none Valvular Disease: no significant valvular disease Negative exercise stress echocardiogram and EKG for ischemia at 91% MPHR. There were no EKG changes. PVCs seen with exercise. Exercise was stopped due to fatigue. The baseline ECHO notes normal LV function. Trace pulmonic regurgitation. Trace tricuspid regurgitation. Laboratory Results 11/08/18 09:51 11/08/18 09:51 Blood Type A Positive 11/08/18 09:51 Antibody Screen NEGATIVE 11/08/18 09:51 PT 10.4 Seconds (9.0-12.0) 11/08/18 09:51 INR 1.0 (0.9-1.1) 11/08/18 09:51 APTT 26.6 Seconds (21.0-31.0) 11/08/18 09:51 Hemoglobin A1c 6.1 % (4.5-5.6) H 11/08/18 09:51 Urine Color Yellow 11/08/18 Unknown Urine Appearance Clear (Clear) 11/08/18 Unknown Urine pH 5.0 (4.5-7.5) 11/08/18 Unknown Ur Specific [place] 1.013 (1.000-1.030) 11/08/18 Unknown Urine Protein Negative (Negative) 11/08/18 Unknown Urine Glucose (UA) Negative (Negative) 11/08/18 Unknown Urine Ketones Negative (Negative) 11/08/18 Unknown Urine Nitrite Negative (Negative) 11/08/18 Unknown Ur Leukocyte Esterase Negative (Negative) 11/08/18 Unknown 11/08/18 Unknown Urine Culture - Final Urine,Clean Catch No growth - less than 1,000 colonies/mL.
--- NOTE | 2018-11-08 09:38 | PAT Medication Instructions ---
Medication Instructions Date of Service November 08, 2018 Home Medications acetaminophen [Tylenol Arthritis] 650 mg PO Q12H PRN ascorbic acid (vitamin C) 1 g PO QAM aspirin [Aspir-81] 81 mg PO QAM atorvastatin 80 mg PO HS cholecalciferol (vitamin D3) 1,000 unit PO QAM clopidogrel 75 mg PO HS coenzyme Q10 200 mg PO QAM irbesartan 150 mg PO QAM loratadine [Claritin] 10 mg PO QAM metformin 500 mg PO QAM metoprolol succinate 150 mg PO QAM multivitamin 1 tab PO QAM nitroglycerin [Nitrostat] 1 tab SUBLINGUAL UD PRN pantoprazole [Protonix] 40 mg PO QAM red yeast rice 600 mg PO QAM tamsulosin 0.4 mg PO HS triamcinolone acetonide 1 applic TOPICAL UD PRN turmeric 1 cap PO QAM zinc 50 mg PO QAM cholecalciferol (vitamin D3) 1,000 unit PO QAM diclofenac sodium 2 g TOPICAL BID dutasteride 0.5 mg PO QAM glucosamine HCl 1,500 mg PO QAM loratadine 10 mg PO QAM niacin 500 mg PO QAM ranitidine HCl 150 mg PO BID ASK your prescriber and surgeon clopidogrel 75 mg PO HS STOP taking 2 weeks before surgery coenzyme Q10 200 mg PO QAM red yeast rice 600 mg PO QAM turmeric 1 cap PO QAM glucosamine HCl 1,500 mg PO QAM If surgery is within 2 weeks, stop taking as soon as possible. STOP taking 24 hours before surgery triamcinolone acetonide 1 applic TOPICAL UD PRN diclofenac sodium 2 g TOPICAL BID DO NOT take the morning of surgery ascorbic acid (vitamin C) 1 g PO QAM cholecalciferol (vitamin D3) 1,000 unit PO QAM irbesartan 150 mg PO QAM loratadine [Claritin] 10 mg PO QAM metformin 500 mg PO QAM multivitamin 1 tab PO QAM zinc 50 mg PO QAM cholecalciferol (vitamin D3) 1,000 unit PO QAM dutasteride 0.5 mg PO QAM loratadine 10 mg PO QAM niacin 500 mg PO QAM Take morning of surgery With a small sip of water, OTHERWISE NOTHING TO EAT OR DRINK AFTER MIDNIGHT: acetaminophen [Tylenol Arthritis] 650 mg PO Q12H PRN (if needed, may be taken up to four hours before surgery) aspirin [Aspir-81] 81 mg PO QAM metoprolol succinate 150 mg PO QAM nitroglycerin [Nitrostat] 1 tab SUBLINGUAL UD PRN (if needed) pantoprazole [Protonix] 40 mg PO QAM ranitidine HCl 150 mg PO BID Take evening before surgery acetaminophen [Tylenol Arthritis] 650 mg PO Q12H PRN (if needed) atorvastatin 80 mg PO HS nitroglycerin [Nitrostat] 1 tab SUBLINGUAL UD PRN (if needed) tamsulosin 0.4 mg PO HS ranitidine HCl 150 mg PO BID Other Notes If you have any questions please call us at [phone] or [phone] or [phone] or [phone]
--- NOTE | 2018-11-08 10:19 | XRay Report ---
XR chest Pre-admission PA/Lat CLINICAL HISTORY: Preoperative evaluation. COMPARISON STUDY: Chest radiograph November 01, 2016. FINDINGS: Lung volumes are normal. No pneumothorax or pleural effusion. There is no consolidation or evidence for pulmonary edema. Cardiac size is normal. Mediastinal contours are normal. IMPRESSION: No acute cardiopulmonary findings. Electronically signed by: Collin Chang M.D. 11/08/2018 10:18 AM
[2018-11-08 10:57] LABS: Basophils # (auto) 0.01 K/uL (0-0.2); Basophils % (auto) 0.2 %; Eosinophils # (auto) 0.06 K/uL (0-0.5); Hematocrit (blood only) 40.6 % (42-52); Hemoglobin 13.5 g/dL (14.0-18.0); Lymphocytes # (auto) 1.84 K/uL (1.2-3.4); Lymphocytes % (auto) 29.7 %; Mean Corpuscular Hgb Conc 33.3 g/dL (32-36); Mean Corpuscular Volume 95.8 fL (80-100); Mean Platelet Volume 9.9 fL (7.4-10.4); Monocytes # (auto) 0.92 K/uL (0.11-0.59); Monocytes % (auto) 14.8 %; Neutrophils # (auto) 3.37 K/uL (1.4-6.5); Neutrophils % (auto) 54.3 %; Platelet Count 167 K/uL (130-400); RDW Coefficient of Variation 12.9 % (11.5-14.5); RDW Standard Deviation 44.9 fL (36.4-46.3); Red Blood Count 4.24 M/uL (4.7-6.1)
[2018-11-08 10:58] LABS: Appearance Urine Clear (Clear); Bilirubin Urine Negative (Negative); Color Urine Yellow; Glucose Urine UA Negative (Negative); Ketones Urine Negative (Negative); Leukocyte Esterase Urine Negative (Negative); Nitrite Urine Negative (Negative); Protein Urine Negative (Negative); Specific Gravity Urine 1.013 (1.000-1.030); Urobilinogen Urine Negative (Negative)
[2018-11-08 11:06] LABS: Partial Thromboplastin Time 26.6 Seconds (21.0-31.0); Prothrombin Time 10.4 Seconds (9.0-12.0)
[2018-11-08 11:10] LABS: BUN Creatinine Ratio 20.9 (10-20); Creatinine Clr Calc Pharmacy 100.1 ml/min; Est GFR (African American) 104.5; Est GFR (Non-African American) 90.1; Potassium 4.6 mmol/L (3.5-5.1)
[2018-11-08 11:34] LABS: Estimated Average Glucose 128 mg/dl
--- NOTE | 2018-11-21 10:29 | History and Physical Report ---
DATE OF ADMISSION: 11/22/2018 CHIEF COMPLAINT: Left hip pain. HISTORY OF PRESENT ILLNESS: The patient is a 63-year-old male with known osteoarthritis about his bilateral hips, left greater than right. He had a previous intraarticular corticosteroid injection by an outside physician. He takes glucosamine chondroitin daily. He has ongoing pain and disability with activities of daily living. He has pain with prolonged weightbearing and standing activities. He has difficulty kneeling, bending, squatting activities. Due to ongoing pain and disability, he now desires to proceed with left total hip arthroplasty. PAST MEDICAL HISTORY: Coronary artery disease status post MA in 2006, hypertension, hypercholesterolemia, sleep apnea with CPAP use, type 2 diabetes, basal cell carcinoma, osteoarthritis, enlarged prostate, acid reflux, obesity. PAST SURGICAL HISTORY: Low back surgery. MEDICATIONS: Metoprolol succinate ER 150 mg 1/2 tablets daily, atorvastatin calcium 80 mg at bedtime, clopidogrel 75 mg daily, irbesartan 150 mg daily, aspirin 81 mg daily, finasteride 5 mg daily, dutasteride 0.5 mg daily, Tylenol Arthritis twice daily, diclofenac sodium gel as needed, metformin HCL ER 500 mg 2 tablets daily, ranitidine 150 mg twice daily, loratadine 10 mg daily, triamcinolone cream for dry skin as directed, niacin 500 mg daily, vitamin C 1000 mg daily, zinc 50 mg daily, red yeast rice 1200 mg daily, CoQ10 200 mg daily, vitamin D3 1000 mg daily, turmeric daily, multivitamin daily, glucosamine chondroitin daily, nitroglycerin p.r.n. chest pain. ALLERGIES: No known drug allergies. SOCIAL HISTORY AND REVIEW OF SYSTEMS: Noncontributory. PHYSICAL EXAMINATION: GENERAL: Well-nourished, well-developed male, who appears stated age. HEENT: Normocephalic, atraumatic. Extraocular movements intact. Oropharynx pink and moist. NECK: Supple without adenopathy. LUNGS: Clear to auscultation bilaterally. HEART: Regular rate and rhythm. ABDOMEN: Soft, nontender, nondistended. EXTREMITIES: The upper extremities is within normal limits. The left hip demonstrates limited range of motion. There is limitation of active and passive internal/external rotation with pain at end range. X-RAYS: X-rays were reviewed. He has moderate to severe osteoarthritis about the left hip with loss of the joint space. There are large osteophytes about the femoral head and acetabulum. ASSESSMENT: Left hip degenerative joint disease. PLAN: Risks versus benefits were discussed, consent was obtained. The patient's primary care physician is Dr. Hernández. His search engine optimization strategist is Dr. Robert. We will proceed with left total hip arthroplasty as indicated.
[2018-11-22] MEDS ORDERED: CEFAZOLIN 2000MG 2,000 MG/15 ML SYR IV SCH (06:00)
[2018-11-22] MEDS ORDERED: FAMOTIDINE 20 MG TAB PO SCH (06:00)
[2018-11-22] MEDS ORDERED: ACETAMINOPHEN 500 MG TAB PO SCH (06:00)
[2018-11-22] MEDS ORDERED: GABAPENTIN 300 MG PO SCH (06:00)
[2018-11-22] MEDS ORDERED: CeleBREX 200 MG CAP PO SCH (06:00)
[2018-11-22] MEDS ORDERED: dexAMETHasone 4 MG TAB PO SCH (06:00)
[2018-11-22] MEDS ORDERED: ROPIVACAINE 0.5% HCL/PF 150 MG, BUPIVACAINE 0.5% MPF 30 ML, EPINEPHrine 30MG/30ML (OR U... INFIL SCH (06:00)
[2018-11-22] MEDS ORDERED: BUPIVACAINE 0.5 % 5 MG/1 ML PF 10ML VIAL ONE (06:31)
[2018-11-22] MEDS: LR 500ML BOLUS, THEN 15ML/HR IV SCH ×2 (06:45→15:08)
--- NOTE | 2018-11-22 07:10 | History & Physical Bridge Note ---
Date of Service November 22, 2018 History & Physical Bridge Note I have examined the patient, reviewed the History & Physical and in the interval since the performance of the History & Physical I have noted the following changes of clinical significance: no changes noted
[2018-11-22] MEDS ORDERED: BACITRACIN INJ 50,000 UNIT VIAL ONE (07:53)
[2018-11-22] MEDS ORDERED: POVIDONE-IODINE OP SOLN 30 ML BTL ONE (07:53)
[2018-11-22] MEDS ORDERED: ORTHO JOINT ANESTHETIC ONE (07:53)
[2018-11-22] MEDS ORDERED: MIDAZOLAM HCL 1 MG/ML 2ML VIAL ONE (07:55)
[2018-11-22] MEDS ORDERED: fentaNYL citrate 100 MCG/2 ML VIAL ONE (07:55)
[2018-11-22] MEDS ORDERED: ONDANSETRON INJ 2 MG/ML 2 ML VIAL IV PRN ×2 (08:26→10:32)
[2018-11-22] MEDS ORDERED: PHENYLEPHRINE 100MCG/ML 5ML SYR IV PRN (08:26)
[2018-11-22] MEDS ORDERED: KETOROLAC 30 MG/ML VIAL IV PRN (08:26)
[2018-11-22] MEDS ORDERED: HYDROmorphone INJ 1 MG/ML SYRINGE IV PRN ×2 (08:26→10:32)
[2018-11-22] MEDS ORDERED: ePHEDrine sulfate 50 MG/ML AMP IV PRN (08:26)
[2018-11-22] MEDS ORDERED: ATROPINE SULFATE 0.1 MG/ML 10ML SYR IV PRN (08:26)
[2018-11-22] MEDS ORDERED: TRANEXAMIC ACID 1,000 MG in 0.9 % SODIUM CHLORIDE 100 ML IV ONE ×2 (08:40→08:45)
[2018-11-22] MEDS ORDERED: LIDOCAINE HCL 2% 2 ML VIAL/AMP(20MG/ML) INFIL ONE (08:46)
[2018-11-22] MEDS ORDERED: PROPOFOL IV EMULSION 10 MG/ML 20 ML VIAL IV ONE (08:46)
--- NOTE | 2018-11-22 09:13 | Operative Report ---
Post Operative Report Pre & Post Diagnosis Operation Date: 11/22/18 08:15 Pre-Op Diagnosis: Left Hip Degenerative Joint Disease Post-Op Diagnosis: Left Hip Degenerative Joint Disease Procedure Operation Date: 11/22/18 08:15 Actual Procedures p Left Hip Arthroplasty(Left) - Alvaro Mitchell MD Surgeon Alvaro Mitchell MD Construction Trades Teacher Antonia Estimated Blood Loss 100 Findings Consistent with Post-Op Diagnosis Specimens Femoral head Anesthesia Type Spinal Complications none Disposition Accompanied Patient To Recovery: No Disposition: Recovery Room Indications Hip pain Description of Procedure Patient was placed in the right lateral decubitus position the left hip was prepped and draped in usual sterile manner. A click along the back incision was made subcutaneous tissue sharply dissected with scars of hemostasis. Fascia was incised throughout the length of the wound and the short external rotators were divided from the posterior aspect of the femur using electrocautery. The piriformis was tagged. A T capsulotomy incision was made and the hip was dislocated. The femoral neck was osteotomized at the appropriate level using the oscillating saw and the femoral head was removed severely arthritic and deformed femoral head was noted. Next retractors were placed and attention was turned to the acetabulum where the labrum and capsule were removed. Sequential reamings were taken up to size 56 gave good filling of the acetabulum. A 56 mm shell was obtained and was impacted in position. This was affixed using a single cancellous bone screw. The polyethylene liner was then impacted in position and an elevated posterior wall that was used. Next attention was turned to the femur a box osteotome was used to gain access to the femoral canal. A T-handled canal finder was utilized as well as a lateralizing reamer and sequential aspirins were 4 which gave good fit and fill. Trial reduction was carried out and a size -2.5 neck was chosen. The rasp was removed the thoroughly irrigated the final stem was impacted in position the hip was relocated and found to be exceptionally stable and the wound was injected with the joint mix pulsatile irrigation was used to clean the wound piriformis was repaired to the greater trochanter using #1 Vicryl Hemovac drain was placed Betadine soap was utilized fascia was incised throughout was closed using #1 Vicryl [id number] sutures subcutaneous tissue was closed using 0 Dexon skin was closed was applied. Sterile dressing of Adaptic 4 x 4's ABDs and foam tape was applied. Patient tolerated procedure well. Mr. Jordan was utilized all portions of the case including prepping draping surgical assistance wound closure and dressing application. I attest to the content of the Intraoperative Record and any orders documented therein. Any exceptions are noted below.
--- NOTE | 2018-11-22 10:17 | Anesthesiology Progress Note ---
Date of Service November 22, 2018 Anesthesia Post Procedure Vital Signs Vital Signs: Temp Pulse Pulse Resp BP BP Pulse Ox 11/22/18 09:55 62 18 110/76 100 11/22/18 09:50 57 L 13 117/75 100 11/22/18 09:45 62 18 104/68 100 11/22/18 09:40 63 21 112/69 100 11/22/18 09:39 62 15 100/71 98 11/22/18 09:38 36.0 C L 69 20 100/71 100 11/22/18 06:51 36.6 C 61 20 145/86 H 96 Pain Intensity Left Hip: Pain Intensity: 3 Notes Mental Status: alert / awake / arousable Patient Amnestic to Procedure: Yes Nausea / Vomiting: adequately controlled Pain: adequately controlled Airway Patency, RR, SpO2: stable & adequate BP & HR: stable & adequate Hydration State: stable & adequate Anesthetic Complications: no major complications apparent
[2018-11-22] MEDS ORDERED: MAGNESIUM HYDROXIDE SUSP 30 ML UDC PO PRN (10:32)
[2018-11-22] MEDS ORDERED: NALOXONE HCL 0.4 MG/1 ML VIAL/CARP IV PRN (10:32)
[2018-11-22] MEDS ORDERED: BISACODYL 10 MG SUPP PR PRN (10:32)
[2018-11-22] MEDS ORDERED: NITROGLYCERIN SL 0.4 MG/TAB TAB SL PRN (10:32)
[2018-11-22] MEDS ORDERED: ALUMINUM/MAGNESIUM SUSP 30 ML UDC PO PRN (10:32)
[2018-11-22] MEDS ORDERED: METOCLOPRAMIDE HCL INJ 5 MG/ML 2 ML VIAL IV PRN (10:32)
--- NOTE | 2018-11-22 10:34 | XRay Report ---
XR hip 1V LT w pelvis CLINICAL HISTORY: post-op GEORGE COMPARISON: Pelvis radiograph June 12, 2016. FINDINGS: Postoperative findings within the spine are partially imaged. Alignment of the total left hip arthroplasty is anatomic. There is an acetabular screw and surgical drain. There is no fracture o r unexpected radiopaque foreign body. IMPRESSION: Expected findings following total left hip arthroplasty. Electronically signed by: Collin Chang M.D. 11/22/2018 10:33 AM
--- NOTE | 2018-11-22 11:07 | Consultation ---
Date of Consultation November 22, 2018 Assessment & Plan (1) Hip pain: As per ortho s/p L hip on 11/22 Pre-op Hb 13.5 DVT proph and diet as per ortho (2) HTN (hypertension): continue home meds (3) Hyperlipidemia: continue home meds (4) CAD (coronary artery disease): s/p RI 2007 and TIA aspirin plavix Follows with Dr. Robert if needed (5) BPH (benign prostatic hyperplasia): continue home meds (6) JANELL (obstructive sleep apnea): CPAP (7) GERD (gastroesophageal reflux disease): continue home meds (8) DVT prophylaxis: as per ortho History of Present Illness Reason for Consultation: Medical Management Attending Physician: Alvaro Mitchell MD History of Present Illness 63 y/o M who was admitted on 11/22 s/p L hip replacement with Dr. Mitchell. Pt is doing well post-op. Tolerating PO without issue. Pt denies fever, SOB, chest pain, abd pain, n/v/c/d, LE swelling. He has already been for several laps around the unit. Allergies Allergy/AdvReac Type Severity Reaction Status Date / Time adhesive Allergy Unknown RASH Verified 11/22/18 07:06 cashew nut Allergy Unknown GI ISSUES Verified 11/22/18 07:06 Home Medications Home Medications Medication Instructions Recorded Confirmed Type acetaminophen [Tylenol Arthritis 650 mg PO Q12H PRN 11/05/18 11/22/18 History Pain] ascorbic acid (vitamin C) [Vitamin 1 g PO QAM 11/05/18 11/05/18 History C] aspirin [Aspir-81] 81 mg PO QAM 11/05/18 11/05/18 History atorvastatin 80 mg PO HS 11/05/18 11/22/18 History cholecalciferol (vitamin D3) 1,000 unit PO QAM 11/05/18 11/05/18 History [Vitamin D3] clopidogrel 75 mg PO 11/05/18 11/05/18 History coenzyme Q10 200 mg PO QAM 11/05/18 11/05/18 History irbesartan 150 mg PO QAM 11/05/18 11/22/18 History metformin 500 mg PO QAM 11/05/18 11/22/18 History metoprolol succinate 150 mg PO QAM 11/05/18 11/05/18 History multivitamin 1 tab PO QAM 11/05/18 11/05/18 History nitroglycerin [Nitrostat] 1 tab SUBLINGUAL UD PRN 11/05/18 11/22/18 History red yeast rice 600 mg PO QAM 11/05/18 11/05/18 History tamsulosin 0.4 mg PO HS 11/05/18 11/22/18 History triamcinolone acetonide 1 applic TOPICAL UD PRN 11/05/18 11/22/18 History turmeric 1 cap PO QAM 11/05/18 11/22/18 History zinc 50 mg PO QAM 11/05/18 11/05/18 History cholecalciferol (vitamin D3) 1,000 unit PO QAM 11/08/18 11/08/18 History [Vitamin D3] diclofenac sodium 2 g TOPICAL BID 11/08/18 11/22/18 History dutasteride 0.5 mg PO QAM 11/08/18 11/22/18 History glucosamine HCl 1,500 mg PO QAM 11/08/18 11/22/18 History loratadine 10 mg PO QAM 11/08/18 11/22/18 History niacin 500 mg PO QAM 11/08/18 11/08/18 History ranitidine HCl 150 mg PO BID 11/08/18 11/08/18 History Patient History Medical History Asymptomatic PVCs BPH (benign prostatic hyperplasia) CAD (coronary artery disease) GERD (gastroesophageal reflux disease) H/O vertigo History of basal cell carcinoma of skin Hyperlipidemia Myocardial Infarction 12 YEARS AGO, STENT X1. Osteoarthritis Prediabetes Sleep apnea CPAP HS Transient ischemic attack (TIA) WERE FOUND ON MRI 3 YEARS AGO. NO KNOWLEDGE OF ANY SPECIFIC EVENT. NO RESIDUAL EFFECT. Surgical History Fusion of spine LUMBAR FUSION (L4, L5, S1) History of cardiac cath Social History Current Living Situation: Spouse Other Information That Helps Us Care for You: No Feels Safe at Home: Yes Safety Concerns: Feels Safe At This Time Smoking Status: Never smoker Do You Dip or Chew Tobacco: No Hx Alcohol Use: No Hx Substance Use: No Beliefs That Will Affect Care: None Preferred Language: Uzbek Communication Ability: Effective Systematic Theology Professor Required: No Review of Systems Pertinent positives and negatives reviewed in HPI--all others negative Physical Exam 2 Vital Signs (Past 24 Hours): Last Vital Signs Temp 36.4 C L 11/22/18 10:22 Pulse 59 L 11/22/18 10:22 Resp 16 11/22/18 10:22 BP 111/72 11/22/18 10:22 Pulse Ox 100 11/22/18 10:22 Constitutional: WD/WN, vitals as above Eyes: normal visual mello by confrontation and + anicteric sclerae Neck: normal visual inspection and trachea midline Respiratory: normal respiratory effort, lungs clear to auscultation Cardiovascular: Rate/Rhythm: regular rate and regular rhythm Gastrointestinal (Abdomen): Inspection/Auscultation: abdomen not distended Percussion/Palpation: abdomen soft; abdomen nontender Musculoskeletal: Head/Neck/Chest: normocephalic and head atraumatic negative for edema, peripheral pulses intact Skin: no rashes, warm and dry Neurologic: awake; not confused Speech / Cognition: normal speech Psychiatric: A+Ox3, euthymic affect Results & Data Diagnostic Findings CXR neg for acute
[2018-11-22] MEDS: KETOROLAC TROMETHAMINE 15 MG/ML VIAL IV SCH ×3 (12:28→23:05)
[2018-11-22] MEDS: SODIUM CHLORIDE 0.9% 1000ML 1,000 ML IV SCH ×2 (12:44→21:41)
[2018-11-22] MEDS: ACETAMINOPHEN 500 MG TAB PO SCH ×2 (12:45→21:07)
[2018-11-22] MEDS: CEFAZOLIN 2000MG 2,000 MG/15 ML SYR IV SCH ×2 (16:19→23:05)
[2018-11-22] MEDS: DUTASTERIDE 0.5 MG SCH ×2 (16:20→23:05)
[2018-11-22] MEDS: FERROUS GLUCONATE 324 MG TAB PO SCH (17:35)
[2018-11-22] MEDS ORDERED: GLUCOSE 10 TABS/TUBE PO PRN (20:20)
[2018-11-22] MEDS ORDERED: CARBOHYDRATES FOR HYPOGLYCEMIA PO PRN (20:20)
[2018-11-22] MEDS ORDERED: GLUCAGON FOR INJ 1 MG VIAL SQ PRN (20:20)
[2018-11-22] MEDS ORDERED: GLUCOSE 40% GEL 15 GM TUBE PO PRN (20:20)
[2018-11-22] MEDS ORDERED: DEXTROSE 50% 50 ML SYRINGE IV PRN (20:20)
[2018-11-22] MEDS: DOCUSATE SODIUM 100 MG CAP PO SCH (20:41)
[2018-11-22] MEDS: ASPIRIN 81 MG ECTAB PO SCH (20:42)
[2018-11-22] MEDS ORDERED: CLOPIDOGREL BISULFATE 75 MG TAB PO SCH (21:00)
[2018-11-22] MEDS ORDERED: TAMSULOSIN HCL 0.4 MG CAP PO SCH (21:00)
[2018-11-22] MEDS ORDERED: ATORVASTATIN 40 MG TAB PO SCH (21:00)
[2018-11-22] MEDS ORDERED: SENNA 8.6 MG TAB PO SCH (21:00)
[2018-11-22] MEDS: INSULIN ASPART 100 UNITS/ML 3 ML PEN SC SCH (21:06)
[2018-11-22] MEDS: OXYCODONE HCL IR 5 MG TAB (IMMEDIATE RELEASE) PO PRN (23:53)
[2018-11-23] MEDS: OXYCODONE HCL IR 5 MG TAB (IMMEDIATE RELEASE) PO PRN ×3 (00:50→13:21)
[2018-11-23] MEDS ORDERED: Nursing to Pharmacy Communication ONE (04:56)
[2018-11-23] MEDS: KETOROLAC TROMETHAMINE 15 MG/ML VIAL IV SCH (05:16)
[2018-11-23 06:19] LABS: Hematocrit (blood only) 31.1 % (42-52); Hemoglobin 10.5 g/dL (14.0-18.0); Immature Granulocytes # (auto) 0.03 K/uL (0.00-0.02); Immature Granulocytes % (auto) 0.3 %; Lymphocytes # (auto) 1.06 K/uL (1.2-3.4); Lymphocytes % (auto) 10.5 %; Mean Corpuscular Hgb Conc 33.8 g/dL (32-36); Monocytes # (auto) 0.97 K/uL (0.11-0.59); Monocytes % (auto) 9.6 %; Neutrophils # (auto) 8.06 K/uL (1.4-6.5); Neutrophils % (auto) 79.6 %; Platelet Count 130 K/uL (130-400); RDW Coefficient of Variation 12.7 % (11.5-14.5); RDW Standard Deviation 43.6 fL (36.4-46.3); Red Blood Count 3.31 M/uL (4.7-6.1); White Blood Count 10.12 K/uL (4.8-10.8)
[2018-11-23 06:54] LABS: BUN Creatinine Ratio 21.2 (10-20); Calcium 7.8 mg/dl (8.5-10.1); Creatinine Clr Calc Pharmacy 95.2 ml/min; Est GFR (African American) 99.5; Est GFR (Non-African American) 85.8; Potassium 4.1 mmol/L (3.5-5.1)
--- NOTE | 2018-11-23 07:52 | Anesthesiology Progress Note ---
Date of Service November 23, 2018 Anesthesia Post Procedure Vital Signs Vital Signs: Temp Pulse Pulse Resp BP BP BP 11/23/18 07:23 36.7 C 67 16 113/68 11/23/18 03:19 36.7 C 71 16 107/66 11/22/18 22:53 36.4 C L 68 16 119/71 11/22/18 15:37 36.4 C L 67 16 125/77 11/22/18 13:30 36.4 C L 64 16 122/78 11/22/18 12:29 66 16 131/87 11/22/18 11:30 59 L 16 122/80 11/22/18 11:01 61 16 113/77 11/22/18 10:30 36.4 C L 62 14 107/70 11/22/18 10:22 36.4 C L 59 L 16 111/72 11/22/18 10:20 61 7 L 11/22/18 10:15 36.4 C L 56 L 14 107/69 11/22/18 10:11 61 21 109/75 11/22/18 10:10 56 L 17 11/22/18 10:05 64 13 114/73 11/22/18 10:00 58 L 16 113/71 11/22/18 09:55 62 18 110/76 11/22/18 09:50 57 L 13 117/75 11/22/18 09:45 62 18 104/68 11/22/18 09:40 63 21 112/69 11/22/18 09:39 62 15 100/71 11/22/18 09:38 36.0 C L 69 20 100/71 Pulse Ox 11/23/18 07:23 97 11/23/18 03:19 95 11/22/18 22:53 91 11/22/18 15:37 93 11/22/18 13:30 95 11/22/18 12:29 100 11/22/18 11:30 100 11/22/18 11:01 100 11/22/18 10:30 100 11/22/18 10:22 100 11/22/18 10:20 99 11/22/18 10:15 100 11/22/18 10:11 99 11/22/18 10:10 100 11/22/18 10:05 100 11/22/18 10:00 100 11/22/18 09:55 100 11/22/18 09:50 100 11/22/18 09:45 100 11/22/18 09:40 100 11/22/18 09:39 98 11/22/18 09:38 100 Pain Intensity Left Hip: Pain Intensity: 3 Notes Mental Status: alert / awake / arousable and participated in evaluation Patient Amnestic to Procedure: Yes Nausea / Vomiting: adequately controlled Pain: adequately controlled Airway Patency, RR, SpO2: stable & adequate BP & HR: stable & adequate Hydration State: stable & adequate Neuraxial Anesthesia: was administered and sensory block resolved Anesthetic Complications: no major complications apparent and Pt Satisfied with anesthetic care
[2018-11-23] MEDS ORDERED: dexAMETHasone 10 MG in SYRINGE 0 ML IV SCH (08:00)
[2018-11-23] MEDS ORDERED: ACETAMINOPHEN 500 MG TAB PO SCH (08:00)
[2018-11-23] MEDS: FERROUS GLUCONATE 324 MG TAB PO SCH (08:29)
[2018-11-23] MEDS: DUTASTERIDE 0.5 MG SCH (08:30)
[2018-11-23] MEDS: ASPIRIN 81 MG ECTAB PO SCH (08:31)
[2018-11-23] MEDS: DOCUSATE SODIUM 100 MG CAP PO SCH (08:31)
[2018-11-23] MEDS: INSULIN ASPART 100 UNITS/ML 3 ML PEN SC SCH (08:35)
[2018-11-23] MEDS ORDERED: ZINC SULFATE 220 MG CAPSULE PO SCH (09:00)
[2018-11-23] MEDS ORDERED: NIACIN 500 MG TAB PO SCH (09:00)
[2018-11-23] MEDS ORDERED: CHOLECALCIFEROL 1,000 UNITS TAB PO SCH (09:00)
[2018-11-23] MEDS ORDERED: METOPROLOL SUCC 50MG EXT REL TAB PO SCH (09:00)
[2018-11-23] MEDS ORDERED: IRBESARTAN 150 MG TAB PO SCH (09:00)
[2018-11-23] MEDS ORDERED: ASCORBIC ACID 500 MG TAB PO SCH (09:00)
[2018-11-23] MEDS ORDERED: MULTIVITAMIN TAB PO SCH ×2 (09:00)
[2018-11-23] MEDS ORDERED: NON-FORMULARY MEDICATION (Cholecalciferol (Vitamin D3) [Vitamin D3] 1,000 UNITS) PO SCH (09:00)
--- NOTE | 2018-11-23 09:26 | Progress Note ---
DATE: 11/23/2018 SUBJECTIVE: The patient is a 63-year-old white male who is status post left total hip arthroplasty. The patient is currently sitting up in bed and is awake and alert and oriented. He has no complaints this morning. Pain is controlled and he denies calf tenderness. He denies shortness of breath, chest pain, lightheadedness. He is hoping to go home today depending on how he does in physical therapy. Vital signs are stable and he is afebrile. Of note, a Hemovac drainage was noted at 75 mL from the previosu shift. OBJECTIVE: Dressings clean, dry and intact. Calf and thigh were soft, nontender. Neurovascularly intact. Toes were mobile. Leg lengths appear equal. ASSESSMENT: Postop day #1 status post left total hip arthroplasty. PLAN: The patient will be started on physical therapy per protocol and occupational therapy protocols today. Weightbearing as tolerated. DVT prophylaxis with SCDs, MALKA hose and aspirin p.o. b.i.d. Pain management as written. We will see how he progresses with his physical therapy and plan discharge accordingly.
--- NOTE | 2018-11-23 10:54 | Hospitalist Progress Note ---
Date of Service November 23, 2018 Assessment & Plan (1) Hip pain: - S/P L GEORGE on 11/22 and doing extremely well post-operatively - Surgical management per primary team Disposition: Patient anticipates return home later this afternoon. Patient is medically stable for discharge per primary service. Hospitalist service will sign off at this time. If any acute change in medical status occurs please do not hesitate to contact us. Present on Admission?: Yes (2) HTN (hypertension): - STABLE - Continue Irbesartan 150 mg daily and Toprol XL 150 mg daily Present on Admission?: Yes (3) Hyperlipidemia: - Atorvastatin 80 mg daily Present on Admission?: Yes (4) CAD (coronary artery disease): - S/P PA (2006) and TIA - Follows with Dr. Robert - ANNE-MARIE - ASA 81 mg BID (DVT prophylaxis) then resume prior when complete; Plavix 75 mg daily Present on Admission?: Yes (5) BPH (benign prostatic hyperplasia): - Flomax 0.4 mg HS Present on Admission?: Yes (6) JANELL (obstructive sleep apnea): - Continue CPAP Present on Admission?: Yes (7) Pre-diabetes: - Takes Metformin 500 mg daily at home but will cover with SSI - A1c 6.1 Present on Admission?: Yes Subjective Patient reports felling very well today and looks well. He has been ambulating frequently around the floor without difficulty and gait steady. He reports pain is well controlled and only needing small amounts of oral pain medication He verbalizes no complaints and feels at his baseline. Is anticipating returning home this afternoon. Constitutional: no fever and no chills Ear, Nose, Mouth, Throat: no sore throat and no dysphagia Respiratory: no cough and no dyspnea Cardiovascular: no chest pain, no palpitations and no lightheadedness Gastrointestinal: no abdominal pain, no nausea, no vomiting, no constipation and no diarrhea/loose stools Genitourinary (Male): no dysuria Musculoskeletal: + joint pain (mild in the L hip) Integumentary: no rash Physical Exam 2 Vital Signs (Past 24 Hours): Last Vital Signs Temp 36.7 C 11/23/18 07:23 Pulse 67 11/23/18 07:23 Resp 16 11/23/18 07:23 BP 113/68 11/23/18 07:23 Pulse Ox 97 11/23/18 07:23 Constitutional: WD/WN, vitals as above Eyes: + anicteric sclerae ENMT: Ears: no hearing impairment Neck: trachea midline Respiratory: normal respiratory effort, lungs clear to auscultation Cardiovascular: RRR, no murmur, no edema Gastrointestinal (Abdomen): Inspection/Auscultation: normal bowel sounds Percussion/Palpation: abdomen soft; abdomen nontender Musculoskeletal: Drain present in L hip Skin: no rashes, warm and dry Neurologic: moves all extremities Psychiatric: A+Ox3, euthymic affect
--- NOTE | 2018-12-02 23:40 | Discharge Summary ---
CHIEF COMPLAINT: Left hip pain. Please see complete history and physical examination. HOSPITAL COURSE: The patient underwent left total hip arthroplasty without complication. He tolerated the procedure well and was discharged to recovery room in stable condition. His postop course was relatively uneventful. His postoperative pain was reasonably well controlled with a combination of spinal anesthesia, intraoperative joint injection, IV, and oral pain medications. He was started on aspirin for DVT prophylaxis. He also resumed his regular Plavix use. He also utilized MALKA stockings and SCDs for additional prophylaxis. His H and H was stable and did not require transfusion. His surgical drain was discontinued on postop day #1, surgical dressing was changed prior to discharge and will remain in place for approximately 7 days postoperative. He tolerated postop physical therapy reasonably well as he was ambulating and transferring appropriately. He was observing all total hip precautions. He was discharged home on postoperative day #1. He will continue his physical therapy at home. He will continue his aspirin for DVT prophylaxis and follow up in our office in approximately 10-14 days for his initial postop evaluation.
== END 2018-11-23 13:48 | disposition home health service (06) | DRG 470 ==
LOC: ASU 05:55 → 3E 09:45